=== PATIENT | male | born 1945 | race Hispanic/Latino ===

== ENCOUNTER 2017-08-25 08:15 | Inpatient (IN) | payer MEDICARE ==
[2017-08-25] MEDS ORDERED: VASELINE LIP THERAPY TP PRN (08:30)
[2017-08-25] MEDS ORDERED: ARTIFICIAL TEARS OPHTH OINT OU PRN (08:30)
[2017-08-25] MEDS ORDERED: NACL 0.9% 1000 ML 1,000 ML IV ONE ×3 (08:32→09:30)
--- NOTE | 2017-08-25 08:37 | Emergency Department Report ---
ED Altered Mental Status HPI - General Chief Complaint: Dyspnea/Respdistress Stated Complaint: CHAD/BACK PAIN Time Seen by Provider: 08/25/17 08:26 Source: patient, old records reviewed (no previous record for review) Mode of arrival: Wheelchair Limitations: Altered Mental Status - History of Present Illness Initial Comments: 72-year-old male with a past medical history diabetes, atrial fibrillation, and previous CABG presents to the hospital with complains of alteration in mental status and shortness of breath. Patient's called EMS after patient fell on the floor out of bed and was unable to get up and unable to speak. Upon EMS arrival patient was altered with agonal respirations. Accu-Chek was in the 50s. One amp of D50 provided. Unable to obtain sat on room air. Patient was placed on nonrebreather with O2 sat in the 70s. Patient's respirations were agonal so they were assisted with bag valve mask ventilations. Patient unable to speak upon arrival, positive spontaneous movement of all extremities, respiratory distress with accessory muscles noted. - Related Data Allergies Allergy/AdvReac Type Severity Reaction Status Date / Time No Known Allergies Allergy Verified 08/25/17 11:17 ED Review of Systems ROS: Stated complaint: CHAD/BACK PAIN Other details as noted in HPI Comment: Unobtainable due to pts medical conditions ED Physical Exam - General Limitations: Altered Mental Status - Other Other exam information: General: Altered Head exam: Atraumatic Eyes exam: Normal appearance, pupils equal reactive to light, icteric sclera ENT: Very Dry mucous membrane noted upon intubation Neck exam: Normal inspection Respiratory exam: Accessory muscles, respiratory distress, lungs clear Cardiovascular: Irregular rhythm, tachycardic, CABG scar noted Abdomen: Soft, nondistended, and nontender, with normal bowel sounds, no rebound, or guarding Extremity: Spontaneous movements of all extremities without deformity Back: Normal Inspection Neurologic: Lethargic, opens eyes spontaneously, agonal respirations, not speak or follow commands and is movement of all extremities noted Skin: Warm, dry, intact ED Course Vital Signs 08/25/17 08/25/17 08/25/17 08:14 08:16 08:30 Temperature Pulse Rate 119 H 121 H 112 H Respiratory 34 H 34 H 17 Rate Blood Pressure 71/41 117/46 O2 Sat by Pulse 87 94 Oximetry 08/25/17 08/25/17 08/25/17 08:46 09:00 09:15 Temperature Pulse Rate 113 H 115 H 114 H Respiratory 30 H 18 18 Rate Blood Pressure 108/44 167/107 117/42 O2 Sat by Pulse 87 100 Oximetry 08/25/17 08/25/17 08/25/17 09:30 09:46 10:00 Temperature Pulse Rate 113 H 112 H 114 H Respiratory 18 22 22 Rate Blood Pressure 117/42 96/13 105/12 O2 Sat by Pulse 88 87 Oximetry 08/25/17 08/25/17 08/25/17 10:17 10:30 11:00 Temperature 94.8 F L Pulse Rate 120 H 121 H Respiratory 21 22 Rate Blood Pressure 101/24 103/35 O2 Sat by Pulse 76 L 89 Oximetry 08/25/17 11:30 Temperature Pulse Rate 121 H Respiratory 22 Rate Blood Pressure 102/36 O2 Sat by Pulse 97 Oximetry - Reevaluation(s) Reevaluation #1: 08/25/17 10:38 Patient was intubated upon arrival using etomidate and succinylcholine. ABG was performed as initial vent settings and shows a significant metabolic acidosis and PO2 in the 300s. I instructed the respiratory therapist to increase respiratory rate from 18-22 status patient has a significant metabolic acidosis. He also reduce the O2 sat from 100-60%. However, O2 saturation on monitor is now in his 70s. Patient is also hypothermic and active warming initiated. I instructed respiratory therapist to increase O2 saturation 100% again. Patient received sodium bicarbonate 2, calcium gluconate, insulin, glucose, and albuterol for hyperkalemia. 3 L of normal saline initiated. NG tube is aspirating brown stomach contents. Positive urine output after Ernandez insertion. At this time I do not feel patient is stable enough to be transferred to CT. CT head and abdomen and pelvis pending at dispo. - Consultations Consultation #1: 08/25/17 10:31 case d/w Dr Terrell. She spoke to family members at the bedside. Will order a stat dialysis. She - Intubation Time Out Performed: Yes Sedative: Etomidate Mg Given: 20 Paralytic: Succinylcholine Mg Given: 100 Laryngoscope: Melly Size: 3 ET Tube Size: 7.5 Tube Secured Depth (cm): 22 Tube Secured Location: lips Tube Placement Confirmation: visualized tube passing t, equal breath sounds bilat, no breath sounds over epi, confirmation by capnometr Patient Tolerated Procedure: well Intubation Complications: none - Lab Data Result diagrams: 08/25/17 08:27 08/25/17 08:27 Lab Results 08/25/17 08/25/17 08/25/17 Range/Units 08:27 08:27 08:27 WBC 29.3 H (4.5-11.0) K/mm3 RBC 4.31 (3.65-5.03) M/mm3 Hgb 12.6 (11.8-15.2) gm/dl Hct 43.9 (35.5-45.6) % MCV 102 H (84-94) fl MCH 29 (28-32) pg MCHC 29 L (32-34) % RDW 18.4 H (13.2-15.2) % Plt Count 58 L (140-440) K/mm3 Eos % (Auto) Transit Department Clerk Add Manual Diff Complete Total Counted 100 Seg Neuts % (Manual) 68.0 (40.0-70.0) % Band Neutrophils % 11.0 % Lymphocytes % (Manual) 5.0 L (13.4-35.0) % Reactive Lymphs % (Man) 0 % Monocytes % (Manual) 14.0 H (0.0-7.3) % Eosinophils % (Manual) 2.0 (0.0-4.3) % Basophils % (Manual) 0 (0.0-1.8) % Metamyelocytes % 0 % Myelocytes % 0 % Promyelocytes % 0 % Blast Cells % 0 % Nucleated RBC % 1.0 H (0.0-0.9) % Seg Neutrophils # Man 19.9 H (1.8-7.7) K/mm3 Band Neutrophils # 3.2 K/mm3 Lymphocytes # (Manual) 1.5 (1.2-5.4) K/mm3 Abs React Lymphs (Man) 0.0 K/mm3 Monocytes # (Manual) 4.1 H (0.0-0.8) K/mm3 Eosinophils # (Manual) 0.6 H (0.0-0.4) K/mm3 Basophils # (Manual) 0.0 (0.0-0.1) K/mm3 Metamyelocytes # 0.0 K/mm3 Myelocytes # 0.0 K/mm3 Promyelocytes # 0.0 K/mm3 Blast Cells # 0.0 K/mm3 WBC Morphology Not Reportable Hypersegmented Neuts Not Reportable Hyposegmented Neuts Not Reportable Hypogranular Neuts Not Reportable Smudge Cells Not Reportable Toxic Granulation Not Reportable Toxic Vacuolation Not Reportable Dohle Bodies Not Reportable Pelger-Huet Anomaly Not Reportable Ej Rods Not Reportable Platelet Estimate Not Reportable Clumped Platelets Not Reportable Plt Clumps, EDTA Not Reportable Large Platelets Not Reportable Giant Platelets Not Reportable Platelet Satelliting Not Reportable Plt Morphology Comment Not Reportable RBC Morphology Not Reportable Dimorphic RBCs Not Reportable Polychromasia Few Hypochromasia Not Reportable Poikilocytosis Not Reportable Anisocytosis 1+ Microcytosis Not Reportable Macrocytosis Not Reportable Spherocytes Not Reportable Pappenheimer Bodies Not Reportable Sickle Cells Not Reportable Target Cells Not Reportable Tear Drop Cells Not Reportable Ovalocytes Few Helmet Cells Not Reportable Lai-[place] Bodies Not Reportable [place] Rings Not Reportable [place] Cells 1+ Bite Cells Not Reportable Crenated Cell Not Reportable Elliptocytes Not Reportable Acanthocytes (Spur) Not Reportable Rouleaux Not Reportable Hemoglobin C Crystals Not Reportable Schistocytes Not Reportable Malaria parasites Not Reportable Tristan Bodies Not Reportable Hem Pathologist Commnt No PT (12.2-14.9) Sec. INR (0.87-1.13) APTT (24.2-36.6) Sec. POC ABG pH (7.35-7.45) POC ABG pCO2 (35-45) POC ABG pO2 (80-105) POC ABG HCO3 POC ABG Total CO2 POC ABG O2 Sat POC ABG Base Excess FiO2 % Sodium 135 L (137-145) mmol/L Potassium 6.8 H* (3.6-5.0) mmol/L Chloride 91.2 L (98-107) mmol/L Carbon Dioxide 6 L* (22-30) mmol/L Anion Gap 45 mmol/L BUN 97 H (9-20) mg/dL Creatinine 5.1 H (0.8-1.5) mg/dL Estimated GFR 11 ml/min BUN/Creatinine Ratio 19 % Glucose 118 H (75-100) mg/dL POC Glucose (70-105) Lactic Acid 20.60 H* (0.7-2.0) mmol/L Calcium 8.3 L (8.4-10.2) mg/dL Total Bilirubin 7.80 H (0.1-1.2) mg/dL AST 123 H (5-40) units/L ALT 54 (7-56) units/L Alkaline Phosphatase 395 H (35-129) units/L Total Creatine Kinase (55-170) units/L CK-MB (CK-2) (0.0-4.0) ng/mL CK-MB (CK-2) Rel Index (0-4) Troponin T (0.00-0.029) ng/mL NT-Pro-B Natriuret Pep (0-900) pg/mL Total Protein 4.9 L (6.3-8.2) g/dL Albumin 2.6 L (3.9-5) g/dL Albumin/Globulin Ratio 1.1 % Triglycerides (2-149) mg/dL Cholesterol (50-199) mg/dL LDL Cholesterol Direct (50-130) mg/dL HDL Cholesterol (40-59) mg/dL Cholesterol/HDL Ratio % Urine Color (Yellow) Urine Turbidity (Clear) Urine pH (5.0-7.0) Ur Specific [place] (1.003-1.030) Urine Protein (Negative) mg/dL Urine Glucose (UA) (Negative) mg/dL Urine Ketones (Negative) mg/dL Urine Blood (Negative) Urine Nitrite (Negative) Urine Bilirubin (Negative) Urine Urobilinogen (<2.0) mg/dL Ur Leukocyte Esterase (Negative) Urine WBC (Auto) (0.0-6.0) /HPF Urine RBC (Auto) (0.0-6.0) /HPF U Epithel Cells (Auto) (0-13.0) /HPF Urine Bacteria (Auto) (Negative) /HPF Urine Mucus /HPF 08/25/17 08/25/17 08/25/17 Range/Units 08:27 08:27 08:27 WBC (4.5-11.0) K/mm3 RBC (3.65-5.03) M/mm3 Hgb (11.8-15.2) gm/dl Hct (35.5-45.6) % MCV (84-94) fl MCH (28-32) pg MCHC (32-34) % RDW (13.2-15.2) % Plt Count (140-440) K/mm3 Eos % (Auto) Add Manual Diff Total Counted Seg Neuts % (Manual) (40.0-70.0) % Band Neutrophils % % Lymphocytes % (Manual) (13.4-35.0) % Reactive Lymphs % (Man) % Monocytes % (Manual) (0.0-7.3) % Eosinophils % (Manual) (0.0-4.3) % Basophils % (Manual) (0.0-1.8) % Metamyelocytes % % Myelocytes % % Promyelocytes % % Blast Cells % % Nucleated RBC % (0.0-0.9) % Seg Neutrophils # Man (1.8-7.7) K/mm3 Band Neutrophils # K/mm3 Lymphocytes # (Manual) (1.2-5.4) K/mm3 Abs React Lymphs (Man) K/mm3 Monocytes # (Manual) (0.0-0.8) K/mm3 Eosinophils # (Manual) (0.0-0.4) K/mm3 Basophils # (Manual) (0.0-0.1) K/mm3 Metamyelocytes # K/mm3 Myelocytes # K/mm3 Promyelocytes # K/mm3 Blast Cells # K/mm3 WBC Morphology Hypersegmented Neuts Hyposegmented Neuts Hypogranular Neuts Smudge Cells Toxic Granulation Toxic Vacuolation Dohle Bodies Pelger-Huet Anomaly Ej Rods Platelet Estimate Clumped Platelets Plt Clumps, EDTA Large Platelets Giant Platelets Platelet Satelliting Plt Morphology Comment RBC Morphology Dimorphic RBCs Polychromasia Hypochromasia Poikilocytosis Anisocytosis Microcytosis Macrocytosis Spherocytes Pappenheimer Bodies Sickle Cells Target Cells Tear Drop Cells Ovalocytes Helmet Cells Lai-[place] Bodies [place] Rings [place] Cells Bite Cells Crenated Cell Elliptocytes Acanthocytes (Spur) Rouleaux Hemoglobin C Crystals Schistocytes Malaria parasites Tristan Bodies Hem Pathologist Commnt PT 23.6 H (12.2-14.9) Sec. INR 1.97 H (0.87-1.13) APTT 45.6 H (24.2-36.6) Sec. POC ABG pH (7.35-7.45) POC ABG pCO2 (35-45) POC ABG pO2 (80-105) POC ABG HCO3 POC ABG Total CO2 POC ABG O2 Sat POC ABG Base Excess FiO2 % Sodium (137-145) mmol/L Potassium (3.6-5.0) mmol/L Chloride (98-107) mmol/L Carbon Dioxide (22-30) mmol/L Anion Gap mmol/L BUN (9-20) mg/dL Creatinine (0.8-1.5) mg/dL Estimated GFR ml/min BUN/Creatinine Ratio % Glucose (75-100) mg/dL POC Glucose (70-105) Lactic Acid (0.7-2.0) mmol/L Calcium (8.4-10.2) mg/dL Total Bilirubin (0.1-1.2) mg/dL AST (5-40) units/L ALT (7-56) units/L Alkaline Phosphatase (35-129) units/L Total Creatine Kinase 353 H (55-170) units/L CK-MB (CK-2) 7.9 H (0.0-4.0) ng/mL CK-MB (CK-2) Rel Index 2.2 (0-4) Troponin T 0.036 H (0.00-0.029) ng/mL NT-Pro-B Natriuret Pep 15354 H (0-900) pg/mL Total Protein (6.3-8.2) g/dL Albumin (3.9-5) g/dL Albumin/Globulin Ratio % Triglycerides 174 H (2-149) mg/dL Cholesterol 44 L (50-199) mg/dL LDL Cholesterol Direct 3.60475 L (50-130) mg/dL HDL Cholesterol < 3 L (40-59) mg/dL Cholesterol/HDL Ratio 14.00 % Urine Color (Yellow) Urine Turbidity (Clear) Urine pH (5.0-7.0) Ur Specific [place] (1.003-1.030) Urine Protein (Negative) mg/dL Urine Glucose (UA) (Negative) mg/dL Urine Ketones (Negative) mg/dL Urine Blood (Negative) Urine Nitrite (Negative) Urine Bilirubin (Negative) Urine Urobilinogen (<2.0) mg/dL Ur Leukocyte Esterase (Negative) Urine WBC (Auto) (0.0-6.0) /HPF Urine RBC (Auto) (0.0-6.0) /HPF U Epithel Cells (Auto) (0-13.0) /HPF Urine Bacteria (Auto) (Negative) /HPF Urine Mucus /HPF 08/25/17 08/25/17 08/25/17 Range/Units 09:38 09:43 10:15 WBC (4.5-11.0) K/mm3 RBC (3.65-5.03) M/mm3 Hgb (11.8-15.2) gm/dl Hct (35.5-45.6) % MCV (84-94) fl MCH (28-32) pg MCHC (32-34) % RDW (13.2-15.2) % Plt Count (140-440) K/mm3 Eos % (Auto) Add Manual Diff Total Counted Seg Neuts % (Manual) (40.0-70.0) % Band Neutrophils % % Lymphocytes % (Manual) (13.4-35.0) % Reactive Lymphs % (Man) % Monocytes % (Manual) (0.0-7.3) % Eosinophils % (Manual) (0.0-4.3) % Basophils % (Manual) (0.0-1.8) % Metamyelocytes % % Myelocytes % % Promyelocytes % % Blast Cells % % Nucleated RBC % (0.0-0.9) % Seg Neutrophils # Man (1.8-7.7) K/mm3 Band Neutrophils # K/mm3 Lymphocytes # (Manual) (1.2-5.4) K/mm3 Abs React Lymphs (Man) K/mm3 Monocytes # (Manual) (0.0-0.8) K/mm3 Eosinophils # (Manual) (0.0-0.4) K/mm3 Basophils # (Manual) (0.0-0.1) K/mm3 Metamyelocytes # K/mm3 Myelocytes # K/mm3 Promyelocytes # K/mm3 Blast Cells # K/mm3 WBC Morphology Hypersegmented Neuts Hyposegmented Neuts Hypogranular Neuts Smudge Cells Toxic Granulation Toxic Vacuolation Dohle Bodies Pelger-Huet Anomaly Ej Rods Platelet Estimate Clumped Platelets Plt Clumps, EDTA Large Platelets Giant Platelets Platelet Satelliting Plt Morphology Comment RBC Morphology Dimorphic RBCs Polychromasia Hypochromasia Poikilocytosis Anisocytosis Microcytosis Macrocytosis Spherocytes Pappenheimer Bodies Sickle Cells Target Cells Tear Drop Cells Ovalocytes Helmet Cells Lai-[place] Bodies [place] Rings [place] Cells Bite Cells Crenated Cell Elliptocytes Acanthocytes (Spur) Rouleaux Hemoglobin C Crystals Schistocytes Malaria parasites Tristan Bodies Hem Pathologist Commnt PT (12.2-14.9) Sec. INR (0.87-1.13) APTT (24.2-36.6) Sec. POC ABG pH 6.851 L (7.35-7.45) POC ABG pCO2 49.4 H (35-45) POC ABG pO2 334 H (80-105) POC ABG HCO3 8.7 POC ABG Total CO2 10 POC ABG O2 Sat 100 POC ABG Base Excess -25 FiO2 100 % Sodium (137-145) mmol/L Potassium (3.6-5.0) mmol/L Chloride (98-107) mmol/L Carbon Dioxide (22-30) mmol/L Anion Gap mmol/L BUN (9-20) mg/dL Creatinine (0.8-1.5) mg/dL Estimated GFR ml/min BUN/Creatinine Ratio % Glucose (75-100) mg/dL POC Glucose 86 (70-105) Lactic Acid (0.7-2.0) mmol/L Calcium (8.4-10.2) mg/dL Total Bilirubin (0.1-1.2) mg/dL AST (5-40) units/L ALT (7-56) units/L Alkaline Phosphatase (35-129) units/L Total Creatine Kinase (55-170) units/L CK-MB (CK-2) (0.0-4.0) ng/mL CK-MB (CK-2) Rel Index (0-4) Troponin T (0.00-0.029) ng/mL NT-Pro-B Natriuret Pep (0-900) pg/mL Total Protein (6.3-8.2) g/dL Albumin (3.9-5) g/dL Albumin/Globulin Ratio % Triglycerides (2-149) mg/dL Cholesterol (50-199) mg/dL LDL Cholesterol Direct (50-130) mg/dL HDL Cholesterol (40-59) mg/dL Cholesterol/HDL Ratio % Urine Color [place] (Yellow) Urine Turbidity Slightly-cloudy (Clear) Urine pH 5.0 (5.0-7.0) Ur Specific [place] 1.023 (1.003-1.030) Urine Protein 30 mg/dl (Negative) mg/dL Urine Glucose (UA) Neg (Negative) mg/dL Urine Ketones Neg (Negative) mg/dL Urine Blood Neg (Negative) Urine Nitrite Neg (Negative) Urine Bilirubin Neg (Negative) Urine Urobilinogen 2.0 (<2.0) mg/dL Ur Leukocyte Esterase Sm (Negative) Urine WBC (Auto) 29.0 H (0.0-6.0) /HPF Urine RBC (Auto) 4.0 (0.0-6.0) /HPF U Epithel Cells (Auto) 1.0 (0-13.0) /HPF Urine Bacteria (Auto) 1+ (Negative) /HPF Urine Mucus Few /HPF - EKG Data -: EKG Interpreted by Me (peaked T waves anteriorly.) EKG shows normal: sinus rhythm, axis (58), QRS complexes (132), ST-T waves (no ST elevation MO.) Rate: tachycardia (112) When compared to previous EKG there are: previous EKG unavailable - Radiology Data Radiology results: report reviewed Chest x-ray read by radiologist: Limited exam. Endotracheal tube appears in adequate position. Mild cardiomegaly. Lungs grossly clear - Medical Decision Making Patient requires ICU admission. See ED course - Differential Diagnosis sepsis, MO, dehydration, renal failure, encephalopathy, ICH Critical Care Time: Yes Critical care time in (mins) excluding proc time.: 40 Critical care attestation.: If time is entered above; I have spent that time in minutes in the direct care of this critically ill patient, excluding procedure time. ED Disposition Clinical Impression: Altered mental status, Acute renal failure, Hyperkalemia, Metabolic acidosis, Thrombocytopenia, Lactic acidosis, Leukocytosis, Elevated bilirubin, Elevated troponin, Hypothermia, UTI (urinary tract infection) Disposition: DC-09 OP ADMIT IP TO THIS HOSP Is pt being admited?: Yes Condition: Critical Referrals: PRIMARY CARE, [Primary Care Provider] - 3-5 Days Time of Disposition: 10:52 (pradeep/cassie/hospitalist)
[2017-08-25 08:41] LABS: Mean Corpuscular HGB Conc 29 % (32-34); Mean Corpuscular Hemoglobin 29 pg (28-32); Mean Corpuscular Volume 102 fl (84-94); Red Blood Count 4.31 M/mm3 (3.65-5.03); Red Cell Distribution Width 18.4 % (13.2-15.2)
[2017-08-25 08:44] LABS: Hematocrit 43.9 % (35.5-45.6); Hemoglobin 12.6 gm/dl (11.8-15.2); Platelet Count 58 K/mm3 (140-440)
[2017-08-25 08:52] LABS: INR 1.97 (0.87-1.13)
[2017-08-25 08:53] LABS: Partial Thromboplastin Time 45.6 Sec. (24.2-36.6)
[2017-08-25] MEDS ORDERED: ZOSYN/NS 4.5GM/100ML 4.5 GM/100 ML VIAL IV ONE (08:54)
[2017-08-25] MEDS ORDERED: VANCOMYCIN VIAL IV ONE (08:54)
--- NOTE | 2017-08-25 08:57 | XRay Report ---
AP CHEST: HISTORY: Dyspnea, endotracheal tube placement No comparison. A limited AP view on a trauma board is presented. An endotracheal tube is identified terminating 3 cm superior to the zaheer. Previous CABG changes are suspected. There is mild cardiomegaly with normal pulmonary vascularity. The lungs are generally clear. No large pleural effusion or pneumothorax. No obvious thoracic fracture. IMPRESSION: Limited exam. The endotracheal tube appears in adequate position. Mild cardiomegaly. Lungs grossly clear.
[2017-08-25] MEDS ORDERED: NACL 0.9% 500 ML IV SCH (09:00)
[2017-08-25] MEDS ORDERED: VANCOMYCIN PHARMACY TO DOSE IV SCH (09:00)
[2017-08-25 09:06] LABS: Creatine Kinase MB 7.9 ng/mL (0.0-4.0)
[2017-08-25 09:10] LABS: Albumin 2.6 g/dL (3.9-5); Calcium 8.3 mg/dL (8.4-10.2)
[2017-08-25] MEDS ORDERED: CALCIUM GLUCONATE 1,000 MG in NACL 0.9% 100 ML IV ONE (09:13)
[2017-08-25] MEDS ORDERED: PROVENTIL IH ONE (09:13)
[2017-08-25] MEDS ORDERED: SODIUM BICARBONATE IV ONE ×9 (09:13→17:00)
[2017-08-25] MEDS ORDERED: D50W (25GM) Syringe IV ONE (09:14)
[2017-08-25 09:25] LABS: HDL Cholesterol < 3 mg/dL (40-59)
[2017-08-25 09:31] LABS: LDL Cholesterol,Direct 3.85999 mg/dL (50-130)
[2017-08-25] MEDS ORDERED: VANCOMYCIN 1,750 MG in NACL 0.9% 500 ML 500 ML IV ONE (09:45)
[2017-08-25 09:47] LABS: Band Neutrophils # (Manual) 3.2 K/mm3; Total Cells Counted 100
[2017-08-25 09:48] LABS: Anisocytosis 1+; Basophils % (Manual) 0 % (0.0-1.8); Burr Cells 1+
[2017-08-25 09:49] LABS: Ovalocytes Few
[2017-08-25] MEDS ORDERED: SODIUM BICARBONATE 150 MEQ in D5W 1,000 ML IV ONE (10:01)
[2017-08-25] MEDS ORDERED: TYLENOL PO PRN (10:50)
[2017-08-25] MEDS ORDERED: ZOFRAN IV PRN (10:50)
[2017-08-25] MEDS ORDERED: MILK OF MAGNESIA PO PRN (10:50)
[2017-08-25] MEDS ORDERED: DULCOLAX PR PRN (10:50)
[2017-08-25] MEDS ORDERED: MORPHINE IV PRN ×2 (11:00)
[2017-08-25] MEDS ORDERED: PROVENTIL IH PRN ×2 (11:00→12:18)
[2017-08-25] MEDS ORDERED: AMBIEN PO PRN (11:00)
[2017-08-25 11:01] LABS: Bacteria,Urine 1+ /HPF (Negative); Bilirubin,Urine NEG (Negative); Blood,Urine NEG (Negative); Color,Urine Amber (Yellow); Mucus,Urine FEW /HPF; Nitrite,Urine NEG (Negative)
--- NOTE | 2017-08-25 11:20 | History and Physical Report ---
History of Present Illness Date of examination: 08/25/17 Date of admission: 08/25/2017 Chief complaint: Dyspnea/ Resp Distress History of present illness: 72-year-old male with a past medical history diabetes, atrial fibrillation, and previous CABG presents to the hospital with complains of alteration in mental status and shortness of breath. Patient's called EMS after patient fell on the floor out of bed and was unable to get up and unable to speak. Upon EMS arrival patient was altered with agonal respirations. Accu-Chek was in the 50s. One amp of D50 provided. Unable to obtain sat on room air. Patient was placed on nonrebreather with O2 sat in the 70s. Patient's respirations were agonal so they were assisted with bag valve mask ventilations. Patient unable to speak upon arrival, positive spontaneous movement of all extremities, respiratory distress with accessory muscles noted Past History Past Medical History: atrial fib, diabetes Past Surgical History: CABG Medications and Allergies Allergies Allergy/AdvReac Type Severity Reaction Status Date / Time No Known Allergies Allergy Verified 08/25/17 11:17 Home Medications Medication Instructions Recorded Confirmed Last Taken Type Acetaminophen [Tylenol Arthritis] 650 mg PO PRN 08/25/17 08/25/17 Unknown History AtorvaSTATin [Lipitor] 40 mg PO QHS 08/25/17 08/25/17 Unknown History Exenatide Microspheres [Bydureon 2 mg SQ QWEEK 08/25/17 08/25/17 Unknown History Pen] HYDROcodone/APAP 5-325 [[place] 1 each PO Q6HR PRN 08/25/17 08/25/17 Unknown History 5/325] Lisinopril [Zestril] 5 mg PO QDAY 08/25/17 08/25/17 Unknown History Multivit-Min/FA/Lycopen/Lutein 1 each PO DAILY 08/25/17 08/25/17 Unknown History [Adults 50 Plus Daily Formula] Active Meds: Active Medications Hydrophilic Ointment (Vaseline Lip Therapy) 1 applic TP Q2HR PRN PRN Reason: Dry Lips Vancomycin HCl 1,750 mg/ (Sodium Chloride) 517.5 mls @ 333.333 mls/hr IV ONCE.ED ONE Stop: 08/25/17 11:18 Last Admin: 08/25/17 11:04 Dose: 333.333 mls/hr Sodium Bicarbonate 150 meq/ (Dextrose) 1,150 mls @ 125 mls/hr IV ONCE.ED ONE Stop: 08/25/17 19:12 Last Admin: 08/25/17 11:04 Dose: 125 mls/hr Multi-Ingred Cream/Lotion/Oil/Oint (Artificial Tears Ophth Oint) 1 applic OU Q4HR PRN PRN Reason: Dry Eye(s) Sodium Chloride (Nacl 0.9% 500 Ml) 1 ml IV DIRECT JOANNE Vancomycin HCl (Vancomycin Pharmacy To Dose) 1 each IV PKCONSULT JOANNE PRN Reason: Protocol Review of Systems ROS unobtainable: due to endotracheal tube Exam - Constitutional Vitals: Temp Pulse Resp BP Pulse Ox 94.8 F L 114 H 22 105/12 87 08/25/17 10:17 08/25/17 10:00 08/25/17 10:00 08/25/17 10:00 08/25/17 10:00 General appearance: Present: other (Pt intubated) - EENT Eyes: Present: PERRL, EOM intact ENT: other (Dry blood around in and around both nostrils) - Neck Neck: Present: supple, normal ROM - Respiratory Respiratory effort: normal, other (Pt intubated) Respiratory: bilateral: CTA - Cardiovascular Heart Sounds: Present: S1 & S2. Absent: rub, click - Extremities Extremities: pulses symmetrical, No edema Peripheral Pulses: within normal limits - Abdominal General gastrointestinal: Present: soft, non-tender, non-distended, normal bowel sounds Male genitourinary: Present: deferred - Rectal Rectal Exam: deferred - Integumentary Integumentary: Present: clear, warm, dry - Musculoskeletal Musculoskeletal: other (unable to evaluate to ) - Psychiatric Psychiatric: other (unable to assess due to pt's medical condition) - Neurologic Neurologic: CNII-XII intact - Allied Health Allied health notes reviewed: nursing Results - Labs CBC & Chem 7: 08/25/17 08:27 08/25/17 13:28 Labs: Laboratory Last Values WBC 29.3 K/mm3 (4.5-11.0) H 08/25/17 08:27 RBC 4.31 M/mm3 (3.65-5.03) 08/25/17 08:27 Hgb 12.6 gm/dl (11.8-15.2) 08/25/17 08:27 Hct 43.9 % (35.5-45.6) 08/25/17 08:27 MCV 102 fl (84-94) H 08/25/17 08:27 MCH 29 pg (28-32) 08/25/17 08:27 MCHC 29 % (32-34) L 08/25/17 08:27 RDW 18.4 % (13.2-15.2) H 08/25/17 08:27 Plt Count 58 K/mm3 (140-440) L 08/25/17 08:27 Eos % (Auto) Science Manager 08/25/17 08:27 Add Manual Diff Complete 08/25/17 08:27 Total Counted 100 08/25/17 08:27 Seg Neuts % (Manual) 68.0 % (40.0-70.0) 08/25/17 08:27 Band Neutrophils % 11.0 % 08/25/17 08:27 Lymphocytes % (Manual) 5.0 % (13.4-35.0) L 08/25/17 08:27 Reactive Lymphs % (Man) 0 % 08/25/17 08:27 Monocytes % (Manual) 14.0 % (0.0-7.3) H 08/25/17 08:27 Eosinophils % (Manual) 2.0 % (0.0-4.3) 08/25/17 08:27 Basophils % (Manual) 0 % (0.0-1.8) 08/25/17 08:27 Metamyelocytes % 0 % 08/25/17 08:27 Myelocytes % 0 % 08/25/17 08:27 Promyelocytes % 0 % 08/25/17 08:27 Blast Cells % 0 % 08/25/17 08:27 Nucleated RBC % 1.0 % (0.0-0.9) H 08/25/17 08:27 Seg Neutrophils # Man 19.9 K/mm3 (1.8-7.7) H 08/25/17 08:27 Band Neutrophils # 3.2 K/mm3 08/25/17 08:27 Lymphocytes # (Manual) 1.5 K/mm3 (1.2-5.4) 08/25/17 08:27 Abs React Lymphs (Man) 0.0 K/mm3 08/25/17 08:27 Monocytes # (Manual) 4.1 K/mm3 (0.0-0.8) H 08/25/17 08:27 Eosinophils # (Manual) 0.6 K/mm3 (0.0-0.4) H 08/25/17 08:27 Basophils # (Manual) 0.0 K/mm3 (0.0-0.1) 08/25/17 08:27 Metamyelocytes # 0.0 K/mm3 08/25/17 08:27 Myelocytes # 0.0 K/mm3 08/25/17 08:27 Promyelocytes # 0.0 K/mm3 08/25/17 08:27 Blast Cells # 0.0 K/mm3 08/25/17 08:27 WBC Morphology Not Reportable 08/25/17 08:27 Hypersegmented Neuts Not Reportable 08/25/17 08:27 Hyposegmented Neuts Not Reportable 08/25/17 08:27 Hypogranular Neuts Not Reportable 08/25/17 08:27 Smudge Cells Not Reportable 08/25/17 08:27 Toxic Granulation Not Reportable 08/25/17 08:27 Toxic Vacuolation Not Reportable 08/25/17 08:27 Dohle Bodies Not Reportable 08/25/17 08:27 Pelger-Huet Anomaly Not Reportable 08/25/17 08:27 Ej Rods Not Reportable 08/25/17 08:27 Platelet Estimate Not Reportable 08/25/17 08:27 Clumped Platelets Not Reportable 08/25/17 08:27 Plt Clumps, EDTA Not Reportable 08/25/17 08:27 Large Platelets Not Reportable 08/25/17 08:27 Giant Platelets Not Reportable 08/25/17 08:27 Platelet Satelliting Not Reportable 08/25/17 08:27 Plt Morphology Comment Not Reportable 08/25/17 08:27 RBC Morphology Not Reportable 08/25/17 08:27 Dimorphic RBCs Not Reportable 08/25/17 08:27 Polychromasia Few 08/25/17 08:27 Hypochromasia Not Reportable 08/25/17 08:27 Poikilocytosis Not Reportable 08/25/17 08:27 Anisocytosis 1+ 08/25/17 08:27 Microcytosis Not Reportable 08/25/17 08:27 Macrocytosis Not Reportable 08/25/17 08:27 Spherocytes Not Reportable 08/25/17 08:27 Pappenheimer Bodies Not Reportable 08/25/17 08:27 Sickle Cells Not Reportable 08/25/17 08:27 Target Cells Not Reportable 08/25/17 08:27 Tear Drop Cells Not Reportable 08/25/17 08:27 Ovalocytes Few 08/25/17 08:27 Helmet Cells Not Reportable 08/25/17 08:27 [place] Bodies Not Reportable 08/25/17 08:27 [place] Rings Not Reportable 08/25/17 08:27 [place] Cells 1+ 08/25/17 08:27 Bite Cells Not Reportable 08/25/17 08:27 Crenated Cell Not Reportable 08/25/17 08:27 Elliptocytes Not Reportable 08/25/17 08:27 Acanthocytes (Spur) Not Reportable 08/25/17 08:27 Rouleaux Not Reportable 08/25/17 08:27 Hemoglobin C Crystals Not Reportable 08/25/17 08:27 Schistocytes Not Reportable 08/25/17 08:27 Malaria parasites Not Reportable 08/25/17 08:27 [place] Bodies Not Reportable 08/25/17 08:27 Hem Pathologist Commnt No 08/25/17 08:27 PT 23.6 Sec. (12.2-14.9) H 08/25/17 08:27 INR 1.97 (0.87-1.13) H 08/25/17 08:27 APTT 45.6 Sec. (24.2-36.6) H 08/25/17 08:27 POC ABG pH 6.851 (7.35-7.45) L 08/25/17 09:43 POC ABG pCO2 49.4 (35-45) H 08/25/17 09:43 POC ABG pO2 334 (80-105) H 08/25/17 09:43 POC ABG HCO3 8.7 08/25/17 09:43 POC ABG Total CO2 10 08/25/17 09:43 POC ABG O2 Sat 100 08/25/17 09:43 POC ABG Base Excess -25 08/25/17 09:43 FiO2 100 % 08/25/17 09:43 Sodium 135 mmol/L (137-145) L 08/25/17 08:27 Potassium 6.8 mmol/L (3.6-5.0) H* 08/25/17 08:27 Chloride 91.2 mmol/L (98-107) L 08/25/17 08:27 Carbon Dioxide 6 mmol/L (22-30) L* 08/25/17 08:27 Anion Gap 45 mmol/L 08/25/17 08:27 BUN 97 mg/dL (9-20) H 08/25/17 08:27 Creatinine 5.1 mg/dL (0.8-1.5) H 08/25/17 08:27 Estimated GFR 11 ml/min 08/25/17 08:27 BUN/Creatinine Ratio 19 % 08/25/17 08:27 Glucose 118 mg/dL (75-100) H 08/25/17 08:27 POC Glucose 86 (70-105) 08/25/17 09:38 Lactic Acid 20.60 mmol/L (0.7-2.0) H* 08/25/17 08:27 Calcium 8.3 mg/dL (8.4-10.2) L 08/25/17 08:27 Total Bilirubin 7.80 mg/dL (0.1-1.2) H 08/25/17 08:27 AST 123 units/L (5-40) H 08/25/17 08:27 ALT 54 units/L (7-56) 08/25/17 08:27 Alkaline Phosphatase 395 units/L (35-129) H 08/25/17 08:27 Total Creatine Kinase 353 units/L (55-170) H 08/25/17 08:27 CK-MB (CK-2) 7.9 ng/mL (0.0-4.0) H 08/25/17 08:27 CK-MB (CK-2) Rel Index 2.2 (0-4) 08/25/17 08:27 Troponin T 0.036 ng/mL (0.00-0.029) H 08/25/17 08:27 NT-Pro-B Natriuret Pep 01441 pg/mL (0-900) H 08/25/17 08:27 Total Protein 4.9 g/dL (6.3-8.2) L 08/25/17 08:27 Albumin 2.6 g/dL (3.9-5) L 08/25/17 08:27 Albumin/Globulin Ratio 1.1 % 08/25/17 08:27 Triglycerides 174 mg/dL (2-149) H 08/25/17 08:27 Cholesterol 44 mg/dL (50-199) L 08/25/17 08:27 LDL Cholesterol Direct 3.91583 mg/dL (50-130) L 08/25/17 08:27 HDL Cholesterol < 3 mg/dL (40-59) L 08/25/17 08:27 Cholesterol/HDL Ratio 14.00 % 08/25/17 08:27 Urine Color [place] (Yellow) 08/25/17 10:15 Urine Turbidity Slightly-cloudy (Clear) 08/25/17 10:15 Urine pH 5.0 (5.0-7.0) 08/25/17 10:15 Ur Specific [place] 1.023 (1.003-1.030) 08/25/17 10:15 Urine Protein 30 mg/dl mg/dL (Negative) 08/25/17 10:15 Urine Glucose (UA) Neg mg/dL (Negative) 08/25/17 10:15 Urine Ketones Neg mg/dL (Negative) 08/25/17 10:15 Urine Blood Neg (Negative) 08/25/17 10:15 Urine Nitrite Neg (Negative) 08/25/17 10:15 Urine Bilirubin Neg (Negative) 08/25/17 10:15 Urine Urobilinogen 2.0 mg/dL (<2.0) 08/25/17 10:15 Ur Leukocyte Esterase Sm (Negative) 08/25/17 10:15 Urine WBC (Auto) 29.0 /HPF (0.0-6.0) H 08/25/17 10:15 Urine RBC (Auto) 4.0 /HPF (0.0-6.0) 08/25/17 10:15 U Epithel Cells (Auto) 1.0 /HPF (0-13.0) 08/25/17 10:15 Urine Bacteria (Auto) 1+ /HPF (Negative) 08/25/17 10:15 Urine Mucus Few /HPF 08/25/17 10:15 Assessment and Plan Advance Directives: Yes VTE prophylaxis?: Chemical - Patient Problems (1) Acute respiratory failure Current Visit: Yes Status: Acute Plan to address problem: Currently intubated, BiPAP as needed, Nebulizers IV steroids and IV antibiotics (2) Elevated bilirubin Current Visit: Yes Status: Acute Plan to address problem: CT Pelvis and abdomen when stable (3) Elevated troponin Current Visit: Yes Status: Acute Plan to address problem: Repeat, Cardiology consult if trending up (4) Acute on chronic renal failure Current Visit: Yes Status: Acute Plan to address problem: Nephrology following, likely emergent dialysis (5) Hyperkalemia Current Visit: Yes Status: Acute Plan to address problem: Insulin, DW50, Sodium Gluconate given in ER, Will be further corrected with HD, repeat labs in am (6) Leukocytosis Current Visit: Yes Status: Acute Plan to address problem: Blood and Urine cultures ordered (7) Metabolic acidosis Current Visit: Yes Status: Acute Plan to address problem: Likely to improve with HD, CT head when stable (8) Sepsis Current Visit: Yes Status: Acute Qualifiers: Sepsis type: Salmonella Qualified Code(s): A02.1 - Salmonella sepsis Plan to address problem: Will follow Blood and urine cultures for source (9) Lactic acidosis Current Visit: Yes Status: Acute (10) Acute metabolic encephalopathy Current Visit: Yes Status: Acute
[2017-08-25] MEDS ORDERED: NACL 0.9% 100 ML IV PRN ×2 (12:02→15:29)
--- NOTE | 2017-08-25 12:02 | Consultation ---
Medications and Allergies Allergies Allergy/AdvReac Type Severity Reaction Status Date / Time No Known Allergies Allergy Verified 08/25/17 11:17 Active Meds: Active Medications Acetaminophen (Tylenol) 650 mg PO Q4H PRN PRN Reason: Pain MILD(1-3)/Fever >100.5/HANSEN Albuterol (Proventil) 2.5 mg IH Q4HRT PRN PRN Reason: Shortness Of Breath Albuterol/Ipratropium (Duoneb *Not For Prn Use*) 1 ampul IH Q6HRT JOANNE Bisacodyl (Dulcolax) 10 mg [place] QDAY PRN PRN Reason: Constipation unrelieved by MOM Hydrophilic Ointment (Vaseline Lip Therapy) 1 applic TP Q2HR PRN PRN Reason: Dry Lips Sodium Bicarbonate 150 meq/ (Dextrose) 1,150 mls @ 125 mls/hr IV ONCE.ED ONE Stop: 08/25/17 19:12 Last Admin: 08/25/17 11:04 Dose: 125 mls/hr Magnesium Hydroxide (Milk Of Magnesia) 30 ml PO Q4H PRN PRN Reason: Constipation Morphine Sulfate (Morphine) 2 mg IV Q4H PRN PRN Reason: Pain, Moderate (4-6) Morphine Sulfate (Morphine) 4 mg IV Q4H PRN PRN Reason: Pain , Severe (7-10) Multi-Ingred Cream/Lotion/Oil/Oint (Artificial Tears Ophth Oint) 1 applic OU Q4HR PRN PRN Reason: Dry Eye(s) Ondansetron HCl (Zofran) 4 mg IV Q8H PRN PRN Reason: N/V unrelieved by Reglan Sodium Chloride (Nacl 0.9% 500 Ml) 1 ml IV DIRECT JOANNE Vancomycin HCl (Vancomycin Pharmacy To Dose) 1 each IV PKCONSULT JOANNE PRN Reason: Protocol Zolpidem Tartrate (Ambien) 5 mg PO QHS PRN PRN Reason: Insomnia Exam - Vital Signs Vital signs: Vital Signs Pulse Resp Pulse Ox 119 H 34 H 87 08/25/17 08:14 08/25/17 08:14 08/25/17 08:14 Results - Lab Results 08/25/17 08:27 08/25/17 08:27 Most recent lab results Calcium 8.3 mg/dL (8.4-10.2) L 08/25/17 08:27
[2017-08-25] MEDS ORDERED: DUONEB *Not for PRN Use IH (12:09)
[2017-08-25 14:02] LABS: Calcium 7.2 mg/dL (8.4-10.2)
--- NOTE | 2017-08-25 14:02 | Consultation ---
History of Present Illness Consult date: 08/25/17 Requesting physician: TAMELA COMER Reason for consult: other (Acute Hypoxemic Respiratory Failure; Severe Sepsis) History of present illness: PULMONARY/CCM CONSULT NOTE (Full dictation # [id number]) Please see dictated notes for full details Past History Past Medical History: atrial fib, diabetes Past Surgical History: CABG Medications and Allergies Allergies Allergy/AdvReac Type Severity Reaction Status Date / Time No Known Allergies Allergy Verified 08/25/17 11:17 Home Medications Medication Instructions Recorded Confirmed Last Taken Type Acetaminophen [Tylenol Arthritis] 650 mg PO PRN 08/25/17 08/25/17 Unknown History AtorvaSTATin [Lipitor] 40 mg PO QHS 08/25/17 08/25/17 Unknown History Exenatide Microspheres [Bydureon 2 mg SQ QWEEK 08/25/17 08/25/17 Unknown History Pen] HYDROcodone/APAP 5-325 [[place] 1 each PO Q6HR PRN 08/25/17 08/25/17 Unknown History 5/325] Lisinopril [Zestril] 5 mg PO QDAY 08/25/17 08/25/17 Unknown History Multivit-Min/FA/Lycopen/Lutein 1 each PO DAILY 08/25/17 08/25/17 Unknown History [Adults 50 Plus Daily Formula] Active Meds: Active Medications Acetaminophen (Tylenol) 650 mg PO Q4H PRN PRN Reason: Pain MILD(1-3)/Fever >100.5/HANSEN Albuterol (Proventil) 2.5 mg IH Q4HRT PRN PRN Reason: Shortness Of Breath Albuterol/Ipratropium (Duoneb *Not For Prn Use*) 1 ampul IH Q6HRT JOANNE Bisacodyl (Dulcolax) 10 mg [place] QDAY PRN PRN Reason: Constipation unrelieved by MOM Hydrophilic Ointment (Vaseline Lip Therapy) 1 applic TP Q2HR PRN PRN Reason: Dry Lips Sodium Bicarbonate 150 meq/ (Dextrose) 1,150 mls @ 125 mls/hr IV ONCE.ED ONE Stop: 08/25/17 19:12 Last Admin: 08/25/17 11:04 Dose: 125 mls/hr Sodium Chloride (Nacl 0.9%) 100 mls @ 999 mls/hr IV INDIRA PRN PRN Reason: Hypotension Piperacillin Sod/Tazobactam Sod (Zosyn/Ns 2.25 Gm/50ml) 2.25 gm in 50 mls @ 100 mls/hr IV Q8HR JOANNE PRN Reason: Protocol Magnesium Hydroxide (Milk Of Magnesia) 30 ml PO Q4H PRN PRN Reason: Constipation Methylprednisolone Sodium Succinate (Solu-Medrol) 40 mg IV Q8H JOANNE Morphine Sulfate (Morphine) 2 mg IV Q4H PRN PRN Reason: Pain, Moderate (4-6) Morphine Sulfate (Morphine) 4 mg IV Q4H PRN PRN Reason: Pain , Severe (7-10) Multi-Ingred Cream/Lotion/Oil/Oint (Artificial Tears Ophth Oint) 1 applic OU Q4HR PRN PRN Reason: Dry Eye(s) Ondansetron HCl (Zofran) 4 mg IV Q8H PRN PRN Reason: N/V unrelieved by Reglan Sodium Chloride (Nacl 0.9% 500 Ml) 1 ml IV DIRECT JOANNE Vancomycin HCl (Vancomycin Pharmacy To Dose) 1 each IV PKCONSULT JOANNE PRN Reason: Protocol Zolpidem Tartrate (Ambien) 5 mg PO QHS PRN PRN Reason: Insomnia Physical Examination Vital signs: Vital Signs Pulse Resp Pulse Ox 119 H 34 H 87 08/25/17 08:14 08/25/17 08:14 08/25/17 08:14 Results - Laboratory Findings CBC and BMP: 08/25/17 08:27 08/25/17 13:28 ABG POC ABG pH 6.851 (7.35-7.45) L 08/25/17 09:43 POC ABG pCO2 49.4 (35-45) H 08/25/17 09:43 POC ABG pO2 334 (80-105) H 08/25/17 09:43 POC ABG HCO3 8.7 08/25/17 09:43 POC ABG Total CO2 10 08/25/17 09:43 POC ABG O2 Sat 100 08/25/17 09:43 PT/INR, D-dimer PT 23.6 Sec. (12.2-14.9) H 08/25/17 08:27 INR 1.97 (0.87-1.13) H 08/25/17 08:27 Abnormal lab findings: Abnormal Labs 08/25/17 08/25/17 08/25/17 08:27 08:27 08:27 WBC 29.3 H MCV 102 H MCHC 29 L RDW 18.4 H Plt Count 58 L Lymphocytes % (Manual) 5.0 L Monocytes % (Manual) 14.0 H Nucleated RBC % 1.0 H Seg Neutrophils # Man 19.9 H Monocytes # (Manual) 4.1 H Eosinophils # (Manual) 0.6 H PT INR APTT POC ABG pH POC ABG pCO2 POC ABG pO2 Sodium 135 L Potassium 6.8 H* Chloride 91.2 L Carbon Dioxide 6 L* BUN 97 H Creatinine 5.1 H Glucose 118 H Lactic Acid 20.60 H* Calcium 8.3 L Total Bilirubin 7.80 H AST 123 H Alkaline Phosphatase 395 H Total Creatine Kinase CK-MB (CK-2) Troponin T NT-Pro-B Natriuret Pep Total Protein 4.9 L Albumin 2.6 L Triglycerides Cholesterol LDL Cholesterol Direct HDL Cholesterol Urine WBC (Auto) 08/25/17 08/25/17 08/25/17 08:27 08:27 08:27 WBC MCV MCHC RDW Plt Count Lymphocytes % (Manual) Monocytes % (Manual) Nucleated RBC % Seg Neutrophils # Man Monocytes # (Manual) Eosinophils # (Manual) PT 23.6 H INR 1.97 H APTT 45.6 H POC ABG pH POC ABG pCO2 POC ABG pO2 Sodium Potassium Chloride Carbon Dioxide BUN Creatinine Glucose Lactic Acid Calcium Total Bilirubin AST Alkaline Phosphatase Total Creatine Kinase 353 H CK-MB (CK-2) 7.9 H Troponin T 0.036 H NT-Pro-B Natriuret Pep 37881 H Total Protein Albumin Triglycerides 174 H Cholesterol 44 L LDL Cholesterol Direct 3.05658 L HDL Cholesterol < 3 L Urine WBC (Auto) 08/25/17 08/25/17 08/25/17 09:43 10:15 11:31 WBC MCV MCHC RDW Plt Count Lymphocytes % (Manual) Monocytes % (Manual) Nucleated RBC % Seg Neutrophils # Man Monocytes # (Manual) Eosinophils # (Manual) PT INR APTT POC ABG pH 6.851 L POC ABG pCO2 49.4 H POC ABG pO2 334 H Sodium Potassium Chloride Carbon Dioxide BUN Creatinine Glucose Lactic Acid 14.00 H* Calcium Total Bilirubin AST Alkaline Phosphatase Total Creatine Kinase CK-MB (CK-2) Troponin T NT-Pro-B Natriuret Pep Total Protein Albumin Triglycerides Cholesterol LDL Cholesterol Direct HDL Cholesterol Urine WBC (Auto) 29.0 H
[2017-08-25] MEDS: ZOSYN/NS 2.25 GM/50ML 2.25 GM/50 ML BAG IV SCH ×2 (14:22→23:36)
[2017-08-25] MEDS ORDERED: HEPARIN 10,000 UNITS/10 ML ONE (14:58)
[2017-08-25] MEDS ORDERED: HEPARIN IV PRN (15:29)
[2017-08-25] MEDS: LEVOPHED DRIP 4 MG/NS 250 ML 4 MG/250 ML BAG IV SCH ×3 (15:50→21:08)
[2017-08-25] MEDS ORDERED: LEVOPHED DRIP 4 MG/NS 250 ML 4 MG/250 ML BAG IV ONE (15:54)
[2017-08-25] MEDS ORDERED: INTROPIN DRIP 800 MG/D5W 250 ML 800 MG/250 ML BAG IV SCH (16:00)
--- NOTE | 2017-08-25 16:08 | Procedure Note ---
Date of procedure: 08/25/17 Pre-op diagnosis: hyperkalemia Post-op diagnosis: same Procedure: right femoral VasCath placement Anesthesia: local Surgeon: BELA MAGALLANES Plant Engineering Manager: FAROOQ CALZADA Estimated blood loss: minimal Condition: critical Disposition: ICU
[2017-08-25] MEDS ORDERED: NACL 0.9% 1000 ML 1,000 ML ONE ×2 (16:31→19:59)
[2017-08-25 17:26] LABS: Hepatitis A Antibody IgM Non-Reactive (NonReactive); Hepatitis B Core IgM Non-Reactive (NonReactive); Hepatitis B Surface Antigen Non-Reactive (Negative); Hepatitis C Virus Antibody Non-Reactive (NonReactive)
[2017-08-25] MEDS ORDERED: NACL 0.9% 1000 ML 2,000 ML ONE (17:35)
[2017-08-25] MEDS: DUONEB *Not for PRN Use IH SCH ×2 (18:24→23:19)
[2017-08-25] MEDS: Vasostrict 20 UNIT in NACL 0.9% 100 ML IV SCH (18:58)
[2017-08-25] MEDS ORDERED: ALBURX 25% (ALBUMIN) IV ONE (20:00)
[2017-08-25] MEDS ORDERED: SODIUM BICARBONATE 150 MEQ in D5W 1,000 ML IV SCH ×2 (20:00→22:00)
[2017-08-25] MEDS: NEO-SYNEPHRINE 100 MG in NACL 0.9% 90 ML IV SCH (20:43)
[2017-08-25] MEDS ORDERED: LEVOPHED DRIP 4 MG/NS 250 ML 4 MG/250 ML BAG IV SCH (21:00)
[2017-08-26 00:30] VITALS: BP 108/84
[2017-08-26] MEDS ORDERED: CORDARONE IV ONE (00:54)
[2017-08-26] MEDS ORDERED: ADRENALIN ONE (00:54)
[2017-08-26] MEDS ORDERED: CORDARONE 150 MG in D5W 97 ML IV ONE (01:01)
[2017-08-26] MEDS ORDERED: SODIUM BICARBONATE IV ONE (01:25)
[2017-08-26] MEDS ORDERED: CALCIUM CHLORIDE 1,000 MG in NACL 0.9% 100 ML IV ONE (01:30)
[2017-08-26] MEDS: DUONEB *Not for PRN Use IH SCH (01:40)
[2017-08-26 01:44] LABS: Albumin 2.1 g/dL (3.9-5); Calcium 9.3 mg/dL (8.4-10.2); Magnesium 2.4 mg/dL (1.7-2.3)
[2017-08-26] MEDS: Vasostrict 20 UNIT in NACL 0.9% 100 ML IV SCH (01:58)
[2017-08-26] MEDS: NEO-SYNEPHRINE 100 MG in NACL 0.9% 90 ML IV SCH (01:58)
[2017-08-26] MEDS ORDERED: SODIUM BICARBONATE 50 MEQ in NACL 0.9% 1000 ML 1,000 ML IV SCH (02:00)
[2017-08-26] MEDS ORDERED: CORDARONE 900 MG in D5W 482 ML IV SCH (02:00)
[2017-08-26] MEDS ORDERED: D50W (25GM) Syringe IV ONE (02:09)
[2017-08-26] MEDS ORDERED: ATIVAN IV PRN (02:22)
[2017-08-26] MEDS ORDERED: MORPHINE IV PRN ×2 (02:22)
--- NOTE | 2017-08-26 03:18 | Death Note ---
Note Date of : 08/26/17 Time of : 02:54 Time Pronounced: 02:54 - Preliminary Cause of (problem) (1) Hyperkalemia Preliminary cause of (2) Acute renal failure Preliminary cause of (3) Acute respiratory failure Preliminary cause of
--- NOTE | 2017-08-26 10:19 | Consultation ---
PULMONARY AND CRITICAL CARE CONSULTATION CONSULTING PHYSICIANS: Dr. Barnes and Dr. Sims, Emergency Room physician and PA. REASON FOR CONSULTATION: Severe sepsis, acute respiratory failure, on mechanical ventilatory support. CHIEF COMPLAINT AND HISTORY OF PRESENT ILLNESS: The patient is a 72-year-old male with past medical history significant amongst other things for a diagnosis of diabetes, atrial fibrillation, and coronary artery disease. He came to the Emergency Room with altered mental status and shortness of breath. His had called EMS after he fell on the floor out of bed, was unable to get up and unable to speak. The patient was found with agonal respirations. Accu-Chek showed blood sugars in the 50s. He was unable to sustain O2 sats. He was placed on a nonrebreather. In the emergency room, he was unable to speak. He did have spontaneous movements of all extremities. He was in respiratory extremis. He was intubated in the Emergency Room and brought out to the Intensive Care Unit after initial resuscitative efforts. He was hypothermic at presentation. He did receive 2 amps of sodium bicarbonate, seems like he received a total of about 3 liters of normal saline. This really is as much of the history of presentation. I should mention that when stopped by to see him, he was on mechanical ventilator in the intensive care unit, mostly nonresponsive, requiring vasopressor support. I had given orders to increase minute ventilation over the phone. He had just had a Vas-Cath placed. This really is as much of the history of presentation as I have. Now with regards to the patient's tobacco use/abuse history, the records maintained that tobacco use/abuse history is unknown. PAST MEDICAL HISTORY: Atrial fibrillation, diabetes, coronary artery disease. He is obese. PAST SURGICAL HISTORY: Coronary artery bypass grafting. MEDICATIONS: He was on at the time I stopped by to see him were reviewed, pertinent medications included the following: DuoNeb treatments, breathing treatments, nebulized q.6h. Dopamine drip had been ordered, but had not been started. Levophed drip was going at 5 mcg per minute. Solu-Medrol 40 mg IV q.8h., Zofran 4 mg IV q.8h. p.r.n. nausea and vomiting, Zosyn 2.25 grams IV q.8h. He has received a total of about 3 amps of sodium bicarbonate since he has been here, he also received vancomycin, I believe 1 gram dose. ALLERGIES: No known drug allergies. DIET: Obese gentleman, acute weight loss, again history is unknown. FAMILY AND SOCIAL HISTORY: Lives in the community. Alcohol, tobacco, or illicit drug use or abuse history are unknown. Family history otherwise unknown. REVIEW OF SYSTEMS: Unfortunately, unobtainable secondary to the patient's medical and mental condition. Since he has been here, no gross hematochezia or melena, no gross hematuria. No bloody endotracheal tube secretions and no seizures have been reported. PHYSICAL EXAMINATION: VITAL SIGNS: At presentation in the Emergency Room, vital signs: His initial temperature was 94.8 Fahrenheit. The initial pulse was 119. Respiratory rate was reported as 34, blood pressure 71/41, oxygen sats were 87%, inspired oxygen concentration was not recorded. His sats are difficult to shredder picker showing about 89-90% currently on the assist control mode of ventilation. He is on a tidal volume of 500 mL. I have increased the set rate to 30 per minute. His PEEP is 5 and FiO2 remains 100%. GENERAL: He is elderly looking male lying flat in the bed, nonresponsive. Endotracheal tube in place, looks his stated age, in moderate respiratory distress. HEAD, EYES, EARS, NOSE, AND THROAT: He has some scleral icterus. He has mild conjunctival erythema. There is no gross jugular venous distention, no thyromegaly. Endotracheal tube is in place, taped at the lips around 23-24 cm. Grossly, there are no palpable lymph nodes in the supraclavicular or submandibular lymph node chains. LUNGS: Auscultation of both lung samano really clear bilaterally. No wheezing. HEART: Heart sounds 1 and 2 are heard at the time of my evaluation, regular tachycardia. No rubs, no murmurs. ABDOMEN: Soft, full, bowel sounds are positive, nontender. No significant grimacing to palpation and no palpable hepatosplenomegaly. EXTREMITIES: Without overt digital clubbing, no cyanosis, no pedal edema. He now has a right groin Trialysis catheter in place. No bleeding around the stoma. Dorsalis pedal pulses are weakly palpable bilaterally. NEUROLOGIC: Pupils are equal, round, about 3 mm, sluggishly reactive to light. Extraocular muscle movements could not be assessed. He is not moving any of his extremities spontaneously at the time of my evaluation. LABORATORY DATA: From my review are as follows: Admission white cell count 29,300, hemoglobin 12.6, hematocrit 43.9, platelet count 58. INR 1.97. Arterial blood gas showed a pH of 6.85, pCO2 of 49, pO2 of 334 that was on 100% FiO2 at that time it was drawn. Ventilator settings are not clear. Serum sodium was 135, potassium 6.8, chloride 91, bicarbonate 6, BUN was 97, creatinine was 5.1, glucose was 118. Lactic acid level 14.0, total bilirubin 7.8. AST is 123. CPK 353. Troponin 0.036. BNP is elevated at 14,884. Albumin low at 2.6. Urinalysis: Small leukocyte esterase, negative nitrites, 29 white cells, 1+ bacteremia. MICROBIOLOGY STUDIES: Blood cultures and tracheal aspirates have been sent and are pending. Chest x-ray has been reviewed. Median sternotomy wires are noted. ET tube tip is about 4 cm above the zaheer, low lung volumes. It is a lordotic film. Slight increase in interstitial markings without overt pulmonary edema. No gross pneumothorax, no gross bony fracture. ASSESSMENT: 1. Severe sepsis. 2. Acute hypoxemic respiratory failure. 3. Acute encephalopathy. 4. Acute kidney injury, possibly on chronic. 5. Leukocytosis. 6. Likely urinary tract infection. 7. Hyperkalemia. 8. Severe metabolic acidosis with lactic acidemia. 9. Elevated liver enzymes with hyperbilirubinemia, likely secondary to shock liver and then history of diabetes, atrial fibrillation, obesity. PLAN: Set minute ventilation has been increased to rapidly blow off his carbon dioxide and correct the pH as fast as we can. In the meantime, we will continue the bicarbonate drip as has been ordered. I have had them push a couple amps of sodium bicarbonate in the short time. Bronchodilators will be continued as ordered. Ventilator-associated pneumonia bundle will be addressed daily. We will continue systemic steroids as ordered right now with the possibility of relative adrenal insufficiency being there. We will continue broad spectrum antibiotics as ordered. Infectious Disease physician consultation may be in order. I will repeat a trend serum lactic acid levels. I will also get a CRP level and trend as necessary. Colloid resuscitation will be attempted if he does not respond to crystalloid, but I will have him bolused with another liter of sodium chloride or normal saline I should say. We will consider giving 5% albumin if blood pressure does not respond quickly. Levophed has been started. Vasopressin initiated. Vasopressors will be titrated to keep mean arterial pressures greater than or equal to about 65 mmHg. I will repeat the arterial blood gas and make corrections as necessary. Weaning his oxygen, keeping sats greater than or equal to about 90%. A venous thromboembolic disorder workup will also be initiated. I am at peace with the fact that his INR is essentially therapeutic and he may have been on Coumadin for his known history of atrial fibrillation. His home medications; however, do not reflect that. He will be started on GI prophylaxis. He does not require DVT prophylaxis at this time. Flu and pneumonia vaccination will be per protocol. I will be reevaluating him in short period. He remains critically ill on life-sustaining interventions including mechanical ventilatory support and vasopressors and at very high risk for further deterioration including . I do hope that we can pull him out of this though. Thank you very much for the consult Dr. Barnes. We will follow along. We will make further recommendations as picture progresses/becomes clearer. At this time, we spent about 40-45 minutes of critical care time without overlap, excluding any procedural time that may be necessary. JOB# [id number] TEO/JUDITH
--- NOTE | 2017-08-26 21:12 | XRay Report ---
FINAL REPORT PROCEDURE: Portable AP supine chest x-ray TECHNIQUE: Chest radiograph portable AP supine view. CPT 65206 HISTORY: follow up respiratory failure COMPARISON: No prior studies are available for comparison. FINDINGS: Endotracheal tube in place lying 3.6 centimeter above the zaheer. NG tube is coiled in the stomach directed into the right side of the stomach. Sternotomy wires are visualized. Heart is diffusely enlarged. Right lung is clear. There are strandy and patchy densities in the lower 1/2 of the left lung suggesting atelectasis or pneumonia. No effusions are identified. No acute bony abnormalities are identified. IMPRESSION: Endotracheal tube and NG tube in good position. Cardiomegaly. Increased markings lower 1/2 left lung suggesting pneumonia and or atelectasis. No effusions are seen..
== END 2017-08-26 02:55 | DRG 871 ==
LOC: ED 08:15 → CC1 10:50
PROVIDERS: ADMIT Internal Medicine; ATTEND Internal Medicine
PROC: 4A033R1 Measurement of Arterial Saturation, Peripheral, Percutaneous Approach (ICD-10-PCS; principal; 2017-08-25)
PROC: 5A1D70Z Performance of Urinary Filtration, Intermittent, Less than 6 Hours Per Day (ICD-10-PCS; 2017-08-25)
PROC: 5A1935Z Respiratory Ventilation, Less than 24 Consecutive Hours (ICD-10-PCS; 2017-08-25)
PROC: 0BH17EZ Insertion of Endotracheal Airway into Trachea, Via Natural or Artificial Opening (ICD-10-PCS; 2017-08-25)
PROC: 06HM33Z Insertion of Infusion Device into Right Femoral Vein, Percutaneous Approach (ICD-10-PCS; 2017-08-25)
DX: A41.9 Sepsis, unspecified organism (principal); J96.00 Acute respiratory failure, unspecified whether with hypoxia or hypercapnia; G93.41 Metabolic encephalopathy; N17.9 Acute kidney failure, unspecified; N39.0 Urinary tract infection, site not specified; I48.91 Unspecified atrial fibrillation; Z95.1 Presence of aortocoronary bypass graft; E87.5 Hyperkalemia; D69.6 Thrombocytopenia, unspecified; T68.XXXA Hypothermia, initial encounter; W18.39XA Other fall on same level, initial encounter; Y93.89 Activity, other specified; Y92.89 Other specified places as the place of occurrence of the external cause; Y99.8 Other external cause status; Z79.899 Other long term (current) drug therapy; E11.22 Type 2 diabetes mellitus with diabetic chronic kidney disease; N18.9 Chronic kidney disease, unspecified
CPT/HCPCS: 36415; 36600; 71010; 80048; 80053; 80061; 80074; 81001; 82140; 82550; 82553; 82803; 82805; 82962; 83735; 83880; 84311; 84484; 85007; 85025; 85610; 85730; 87040; 87070; 87086; 87205; 92950; 93005; 93010; 94002; 94640; 96374; 96375; 96376; J0171; J0282; J0610; J1265; J1644; J1815; J2370; J2543; J2920; J3370; J7030; J7040; J7060; J7070; P9047